=== PATIENT | male | born 1980 | race Caucasian/White ===

== ENCOUNTER 2025-04-25 08:42 | Outpatient (CLI) | payer OTHER, SELFPAY ==
--- NOTE | ~2025-04-25 | US_ITS ---
US abdomen limited INDICATION: 5 cm mass of the liver, inconclusive on MRI. PROCEDURE: Realtime right upper abdominal ultrasound. COMPARISON: No prior studies for comparison. FINDINGS: The pancreas is normal without focal mass or pancreatic ductal dilation. There is a cyst o f the liver measuring 5.1 x 3.9 x 4.3 cm. There is normal directional flow in the portal vein. The gallbladder is normal without stones, gallbladder wall thickening or pericholecystic fluid. Comm on bile duct measures 3.5 mm. No sonographic Jacques's sign. There are echogenic foci in the right ki dney. Cannot exclude nonobstructing stones. No hydronephrosis. Right kidney measures 11.6 cm. IMPRESSION: 1: Liver cyst measuring 5.1 cm maximum dimension. 2: Possible nonobstructing right nephrolithiasis. Reviewed, dictated and finalized at location A.
--- OUTSIDE RECORDS SUMMARY | 2025-04-25 08:53 | XMS_ITS | Encounter Summary ---
Author Organization [facility] Address [address] [place] [address] Care Team Providers Care Furniture Maker Name Role Phone PrudencioMaryam gonsales BRUCE-GARBAGE COLLECTOR SUPERVISOR Primary Care Provider + Flower Vaz Primary Care Provider [phone] Encounter Details Date Type Department Care Team (Late st Contact Info) Description 07/30/2023 Lab Requisition [facility] [address] [facility], [place] [id number] Social History Tobacco Use Types Packs/Day Years Used Date Smoking Tobacco: Every Day Cigarettes 2 20 Started: 02/08/1995; Last attempted to quit: 02/08/2014 Smokeless Tobacco: Never Comments:current 5-6 cigaret t/day Alcohol Use Standard Drinks/Week Comments Not Currently 0 (1 standard drink = 0.6 oz pur e alcohol) PHQ-2 Answer Date Recorded PHQ2 TOTAL SCORE 1 05/28/2023 PRAPARE - Transportation Answer Date Re corded Lack of Transportation (Medical) No 02/09/2020 Lack of Transportation (Non-Medical) No 02/09/2020 Sex and Gender Information Value Date Recorded Sex Assigned at Male 09/19/2021 11:57 AM CDT Legal Sex Male 9:40 PM CAR REPOSSESSOR Gender Identity Male 09/19/2021 11:57 AM CDT Sexual Orientation Straight 09/19/2021 11 :57 AM CDT documented as of this encounter Plan of Treatment Not on file documented as of this encounter Visit Diagnoses Not on filedocumented in this encounter Care Teams Furniture Maker Relationship Specialty Start Date End Date Maryam Villanueva APRN-SELVIN [address] [facility] [address] [place] [address] PCP - General 09/04/22 12/28/24 Flower Vaz PA [address] [facility] [address] [place] [address] PCP - General Physician Agricultural Systems Specialist 12/29/24 documented as of this encounter
--- OUTSIDE RECORDS SUMMARY | 2025-04-25 08:54 | XMS_ITS | Data Portability ---
Author Organization [facility] [employer], Main Office Address [address] [place] [address] Assessment No assessment recorded. Plan of Treatment Reminders Order Date Submit Date Provider Last Modified By Organization Details Last Modified Time Details Appointments None recorded. Lab urinalysis , dipstick 2024 025 [place] 4 [facility], [address], [place], [address], 12:24:14 Referral None recorded. Procedures None recorded. Surgeries None recorded. Imaging None recorded. Medication Orders tamsulosin 0.4 mg capsule 2024 025 [facility], [address] [place], [id number], 5 10:44:29 oxybutynin chloride ER 5 mg tablet,ext ended release 24 hr 2024 025 [facility], [address] [place], [id number], 5 10:44:27 Patient TargetsNo targets recorded. Patient InstructionsNo instructions recorded. Reason for Referral None Reported. Results Created Date Observation Date Name Description Value Unit Range Abnormal Flag Note LastModifiedBy Organization Detail LastModifiedTime 01/05/20 25 01/05/2025 urina lysis , dipst ick Leukocytes (reference range: negative kami/ l) Negati ve Not Available [facility] [address], [place], [address], 01/05/2025 11:13:36 01/05/20 25 01/05/2025 urina lysis , dipst ick Nitrite (reference rage: negative mg/dl) negati ve Not Available [facility] [place] [address] [facility], [place], [address], 01/05/2025 11:13:36 01/05/20 25 01/05/2025 urina lysis , dipst ick Urobilinogen (reference range: 0.2-1 mg/dl) 0.2 Not Available [facility] [address] [place], [place] [address] [facility], [place], [address], 01/05/2025 11:13:36 01/05/20 25 01/05/2025 urina lysis , dipst ick pH (reference range: 5-7) 8.5 Not Available [facility] [address] [place], [place] [address] [facility], [place], [address], 01/05/2025 11:13:36 01/05/20 25 01/05/2025 urina lysis , dipst ick Blood (reference range: negative Kalen/ l) Negati ve Not Available [facility] [address] [place], [place] [address] [facility], [place], [address], 01/05/2025 11:13:36 01/05/20 25 01/05/2025 urina lysis , dipst ick Specific [place] (reference range: 1.005-1.030) 1.020 Not Available [facility] [address] [place], [place] [address] [facility], [place], [address], 01/05/2025 11:13:36 01/05/20 25 01/05/2025 urina lysis , dipst ick Ketone (reference range: negative mg/dl) Negati ve Not Available [facility] [place] [address] [place], [place] [address], [place], [address], 01/05/2025 11:13:36 01/05/20 25 01/05/2025 urina lysis , dipst ick Bilirubin (reference range: negative mg/dl) Negati ve Not Available [facility] [address], [place], [address], 01/05/2025 11:13:36 01/05/20 25 01/05/2025 urina lysis , dipst ick Glucose (reference range: negative mg/dl) Negati ve Not Available [facility] [place] [address], [place], [address], 01/05/2025 11:13:36 01/05/20 25 01/05/2025 urina lysis , dipst ick Appearance Clear Not Available [facility] [place] [address], [place], [address], 01/05/2025 11:13:36 01/05/20 25 01/05/2025 urina lysis , dipst ick Color Yellow Not Available [facility] [place] [address], [place], [address], 01/05/2025 11:13:36 Result Notes None recorded. Problems Name Problem SNOMED Code Status Onset Date Resolution Date Notes Provider Name and Address Organization Details Recorded Time Urinary incontinence 218315368 Active 2024 Melinda thompson, [employer] [facility] [employer] [facility] [employer] 5 11:13:31 Overactive urinary bladder 262035824 Active 2024 Jj Talavera MD [address], [place], [address] , [facility] [employer] [facility] [employer] 11:40:06 Benign prostatic hyperplasia with outflow obstruction 000444153 Active 2024 Jj Talavera MD [address] [facility] [address], [place], [address], [facility] [employer] [facility] 5 11:40:09 Prostatitis 4350287 Active 2024 Jj Talavera MD [address], [place], [address], [facility] [employer] [facility] 5 10:47:57 Problem Notes None recorded. Medical Equipment None Reported. Allergies Allergen ID Allergen Name Allergen Category Reaction Reaction Severity Criticality Documentation Date Start Date Code Code System Note Provider Name and Address Organization Details Recorded Time 88817 penicilla mine medicatio n Not available Not available Not available 01/05/2025 7975 RxNorm Melinda Thais thompson [facility] [employer] [facility] 5 11:27:28 52632 Cipro medicatio n Not available Not available Not available 01/05/2025 01201 3 RxNorm Melinda Thais thompson, [facility] [employer] [facility] 5 11:27:34 Medications Name Sig Start Date Stop Date Status Note LastModified by Organization Details LastModified Time buspirone 5 mg tablet active Not Available Not Available No t Available doxycycline hyclate 100 mg capsule active Not Available Not Available N ot Available atorvastatin 20 mg tablet Take 1 tablet every day by oral route at bedtime. active Not Available Not Available No t Available ropinirole 1 mg tablet Take 1 tablet twice a day by oral route. active Not Available Not Available No t Available sucralfate 1 gram tablet active Not Available Not Available Not Available famotidine 40 mg tablet active Not Available Not Available Not Available isosorbide mononitrate ER 30 mg tablet,exten ded release 24 hr active Not Available Not Available Not Available clonazepam 0.5 mg tablet Take 1 tablet twice a day by oral route. active Not Available Not Available No t Available sertraline 100 mg tablet Take 1 tablet every day by oral route in the morning. active Not Available Not Available No t Available ciprofloxaci n 500 mg tablet active Not Available Not Available Not Available sulfamethoxa zole 800 mg-trimethop rim 160 mg tablet Take 1 tablet every 12 hours by oral route for 10 days. active Not Available Not Available No t Available risperidone 3 mg tablet Take 1 tablet twice a day by oral route. active Not Available Not Available No t Available lithium carbonate ER 450 mg tablet,exten ded release active Not Available Not Available Not Available levothyroxin e 100 mcg tablet Take 1 tablet every day by oral route in the morning. active Not Available Not Available No t Available propranolol 10 mg tablet Take 2 tablets twice a day by oral route. active Not Available Not Available No t Available tamsulosin 0.4 mg capsule Take 1 capsule every day by oral route for 90 days. active Not Available Not Available No t Available pantoprazole 40 mg tablet,delay ed release active Not Available Not Available N ot Available lansoprazole 30 mg capsule,shane yed release active Not Available Not Available Not Available docusate sodium 100 mg capsule active Not Available Not Available N ot Available oxybutynin chloride ER 5 mg tablet,exten ded release 24 hr Take 1 tablet every day by oral route for 90 days. active Not Available Not Available No t Available bisacodyl 5 mg tablet,delay ed release active Not Available Not Available N ot Available methylpredni solone 4 mg tablets in a dose pack active Not Available Not Available No t Available albuterol sulfate HFA 90 mcg/actuatio n aerosol inhaler active Not Available Not Available Not Available fluticasone propionate 50 mcg/actuatio n nasal spray,suspen radha active Not Available Not Available Not Available lisinopril 2.5 mg tablet Take 1 tablet every day by oral route in the morning. active Not Available Not Available No t Available eszopiclone 2 mg tablet active Not Available Not Available Not Available Lunesta 1 mg tablet Take 2 tablets every day by oral route at bedtime. active Not Available Not Available No t Available lithium aspartate active Not Available Not Available No t Available Gavilax 17 gram/dose oral powder active Not Available Not Available Not Available Dulera 200 mcg-5 mcg/actuatio n HFA aerosol inhaler Inhale 2 puffs twice a day by inhalation route. active Not Available Not Available No t Available Linzess 72 mcg capsule active Not Available Not Available Not Available albuterol 90 mcg-budesoni de 80 mcg/actuatio n HFA aerosol inhaler Inhale by inhalation route. active Not Available Not Available No t Available Vitals Date Recorded Body temperature Oxygen saturation Oxygen saturation in Arterial blood by Pulse oximetry Heart rate Body height Body mass index (BMI) Body weight Systolic blood pressure Diastolic blood pressure Provider Name and Address Organization Details Last Updated DateTime 99.5 [degF] 98 % 98 % 77 /min 170.18 cm 21.6 kg/m2 78157.7 5 g 127 mm[Hg] 87 mm[Hg] Melinda Plascencia [facility] [employer] [facility] 11:28:05 Social History Question Answer Notes LastModified by Organizat ion Details LastModified Time Tobacco Smoking Status Never Smoker Melinda Plascencia null, [facility] 01/05/2025 11:28:25 What Was The Date Of Your Most Recent Tobacco Screening? 01/05/2025 [email or web address] Information not available 01/05/2025 Sex: Unknown Functional Status Question Answer Note LastModified by Organization D etails LastModified Time What is your level of alcohol consumption? None Information not available 01/05/2025 Mental Status None recorded. Family History Nothing Reported. Medical History Condition Response DIABETES, TYPE Y ASTHMA Y HEPATITIS / LIVER DISEASE N HEART DISEASE/HEART PROBLEMS N HYPERTENSION Y Past Encounters Encounter ID Performer Location Encounter Start Date Encounter Closed Date Diagnosis/Indication Diagnosis SNOMED-CT Code Diagnosis ICD10 Code Diagnosis Note [id number] Jj Talavera MD [facility] [address] [address] 01/05/2025 11:01:03 01/05/2025 11:48:53 Urinary incontinence 268366106 R32 Benign pro static hyperplasia with outflow obstruction 923520111 N40.1 Overactive urinary bladder 984510277 N32.81 Health Concerns Section Related Observation LastModified by Organization Detai ls LastModified Time None Recorded Concern Status LastModified by Organization Details LastModified Time None Recorded Advance Directives Directive None Recorded Payers Encounter Date Sequence Insurance Name Policy Number Policy Le Covered Member ID Le Member ID Guarantor Name 01/05/2025 1 [facility] (MEDICARE - MEDICAID REPLACEMENT HMO) [id number] Jordi Elizalde [id number] Jordi Elizalde Notes Date Note Type Note Provider Name and Address Organization Details Recorded Time 01/05/2025 text/html this patient has tremors but he says he does not have Parkinson's. He says it is nerves. He comes in saying for the past 3 months or so he has been having frequency and urgency and having to void every 2-3 hours. He has to get up 3 times per night. He also thinks his times he has difficulty having a forceful stream He does drink some dietary irritants but he mainly drinks water There are no specific aggravating or relieving factors Jj Talavera MD [address] [place] [address], [place], [address], [place] [facility] 01/05/2025 11:42:06
--- OUTSIDE RECORDS SUMMARY | 2025-04-25 08:54 | XMS_ITS | Clinical Summary ---
Author Organization [facility] Address [address] [place] [address] Care Team Providers Care Motorcycle Maker Name Role Phone Unavailable Primary Care Provider Unavailabl e Social History Tobacco Use Types Packs/Day Years Used Date Smoking Tobacco: Never Assessed Sex and Gender Information Value Date Recorded Sex Assigned at Not on file Legal Sex Male 9:09 PM PDT Gender Identity Not on file Sexual Orientation Not on file Plan of Treatment Not on file
--- OUTSIDE RECORDS SUMMARY | 2025-04-25 08:54 | XMS_ITS | Encounter Summary ---
Author Organization [facility] Address [address] [place] [address] Care Team Providers Care Sealant Mixer Name Role Phone Unavailable Primary Care Provider Unavailabl e Prior Encounters Date Type Department Care Team Description 12/13/2019 Converted 13x Documents [facility] [address] [place] [address] <No scans attached> 12/13/2019 Converted CPS Chart Documents [facility] [address] [place] [address] <No scans attached> Plan of Treatment Not on file Procedures Procedure Name Priority Date/Time Associated Diagnosis Comments 30 CEREC ZIRC CROWNPOST Routine 03/17/20 2:00 AM CDT 19 LIMITED ORAL EVALUATION - PROBLEM FOCUSED Routine 03/17/2020 2:00 AM CDT PANORAMIC RADIOGRAPHIC IMAGE Routine 03/17/2020 2:00 AM CDT ADDITIONAL X-RAY Routine 03/17/2020 2:00 AM CDT ADDITIONAL X-RAY Routine 03/17/2020 2:00 AM CDT ADDITIONAL X-RAY Routine 03/17/2020 2:00 AM CDT ADDITIONAL X-RAY Routine 03/17/2020 2:00 AM CDT ADDITIONAL X-RAY Routine 03/17/2020 2:00 AM CDT ADDITIONAL X-RAY Routine 03/17/2020 2:00 AM CDT SINGLE X-RAY Routine 03/17/2020 2:00 AM CDT Visit Diagnoses Not on file
--- OUTSIDE RECORDS SUMMARY | 2025-04-25 08:54 | XMS_ITS ---
Author Organization [facility] Address [address] [place] [address] Care Team Providers Care General Hardware Salesperson Name Role Phone Flower Vaz Primary Care Provider [phone] Active Problems * This document contains information received from the source organization and may not represent a complete record from that organization. Problem Noted Date Diagnosed Date Schizoaffective disorder, bipolar type 2 Essential hypertension 01/31/2021 Tobacco abuse 09/28/2020 Type 2 diabetes mellitus wit hout complication, without long-term current use of insulin 06/25/2020 Chronic maxillary sinusitis 06/25/2020 Acquired hypothyroidism 06/25/2020 Recurrent major depressive disorder, in partial remission 06/25/2020 Malignant neoplasm of sigmoid colon 06/25/2020 Callus of foot 06/25/2020 Family history of hypertrophic cardiomyopathy BMI 32.0-32.9,adult 06/25/2020 Healthcare maintenance 06/25/2020 Mixed hyperlipidemia 02/09/2020 Obstructive sleep apnea on CPAP 08/15/2017 Irritable bowel syndrome with constipation 07/29 Acid reflux disease 02/10/2015 Overview (05/02/2021): Last Assessment & Plan: Reasonably controlled at this time on 150 mg of ranitidine in the evening. Continue to monitor closely given patient's weight gain for possible return of symptoms. COPD, mild 01/24/2015 Generalized anxiety disorder 11/24/2000 Current Treatment and Therapy Plans No current plan information found. Past Treatment and Therapy Plans No past plan information found. Lifetime Dose Tracking * Chemical Lifetime Dose Automatic Entry Manual Entr y Dose Length Product 877 mGy-cm 877 mGy-cm 0 mGy-cm Resolved Problems Problem Noted Date Diagnosed Date Resolved Date Bipolar 1 disorder 07/26/2016 Overview (01/31/2021): Overview: Transitioned From: Bipolar affective disorder; Annotation - 17May2017: Dr. Shanae Castro; [address]; [place] [address]; Last Assessment & Plan: Care as directed by psychiatry-Dr. Castro. Appears well controlled at this time. Generalized anxiety disorder 01/24/2015 01/31/2021 Overview (01/31/2021): Overview: Annotation - 17May2017: Dr. Shanae Castro; [address]; [place] [address]; Transitioned From: Anxiety; Annotation - 17May2017: Dr. Shanae Castro; [address]; [place] [address]; Last Assessment & Plan: Care as directed by psychiatry-Dr. Castro. Appears well controlled at this time. Asthma 01/24/2015 06/14/2021 Overview (05/02/2021): Last Assessment & Plan: Stable at present, no recent flares, continues on his routine medications. No change current therapy.
--- OUTSIDE RECORDS SUMMARY | 2025-04-25 08:54 | XMS_ITS | Clinical Summary ---
Author Organization [facility] Address [address] [place] [address] Phone Care Team Providers Care Shelving Supervisor Name Role Phone Unavailable Primary Care Provider Unavailabl e Social History Tobacco Use Types Packs/Day Years Used Date Smoking Tobacco: Never Assessed Sex and Gender Information Value Date Recorded Sex Assigned at Not on file Legal Sex Male 3:10 PM CDT Gender Identity Not on file Sexual Orientation Not on file Plan of Treatment Health Maintenance Due Date Last Done Comments DTAP/TDAP/TD VACCINES (1 - Tdap) 1998 HEPATITIS B VACCINES (1 of 3 - 19+ 3-dose series) 1998 INFLUENZA VACCINE (#1) 2024 COLORECTAL SCREENING 2024 Colorectal Cancer Screening 2024 FIT-DNA Q 3 years 2024 FIT/FOBT Q 1 year 2024 Flex Sig/CT Colonography Q 5 years 2024 HPV VACCINES Aged Out No longer eligi ble based on patient's age to complete this topic
--- OUTSIDE RECORDS SUMMARY | 2025-04-25 08:54 | XMS_ITS | CONTINUITY OF CARE DOCUMENT ---
Author Name luana craft Address Unknown Organization [facility] Address [address] [place] [address] Phone [phone] Care Team Providers Care Softball Winder Name Role Phone Clara STALLWORTH, Raul Unavailable [phone] Clara STALLWORTH, Raul Unavailable FERNANDO VALLE MD Unavailable PROBLEMS Condition Status Date Provider Notes Other symptoms involving car diovascular system active Raul Elizabeth MD Anxiety disorder generalized active Raul Elizabeth MD Asthma active Raul Elizabeth MD Bradycardia - sinus active Raul Wilkerson Cardiac murmur active Raul Elizabeth MD DM - type 2 active Raul Elizabeth MD HTN essential active Raul Elizabeth MD Hypercholesterolemia active Raul Elizabeth MD Hypothyroidism active Raul Elizabeth MD Tobacco abuse active Raul Elizabeth MD ENCOUNTERS Date Type Provider Location Encounter Diag nosis 06/02 - 06/02 In-person encounter Office Visit Raul Elizabeth MD [facility] Other symptoms involving cardiovascular systemAnxiety disorder generalizedAsthmaBradycardia - sinusCardiac murmurDM - type 2HTN essentialHypercholesterolemiaHypothyroidismTobacco abuse VITAL SIGNS Date Observation Value Provider Body Mass Index (Ratio) 24.40 kg/m2 Ricardo Elizabeth MD blood pressure, resting Yes Tracey Taylor blood pressure, diastolic 76 mm[Hg] Genna Taylor blood pressure, systolic 121 mm[Hg] Verona Taylor oxygen saturation, oximetry 96 % Chasidy Taylor respiratory rate E&M 18 /min Xiang Taylor pulse rate 53 /min Chasidy chris weight E&M 155.8 [lb_av] Chasidy cordova height E&M 67 [in_i] Chasidy chris ALLERGIES Allergy Name Onset Date Reaction Criticality Status LAMICTAL High Criticality active ERYTHROMYCIN High Criticality active PENICILLIN High Criticality active RESULTS Date Observation Value Provider Reference Range Interpretation Location thyroid stimulating hormone, serum 1.220 ??IU/ML [facility] 0.270 - 4.200 pro brain natriuretic peptide 134.0 pg/mL [facility] 0.0 - 125.0 High very low density lipoproteins 27.6 mg/dL [facility] 5.0 - 40.0 LDL/HDL (low-density lipoprotein/high- density lipoprotein) ratio 1.7 RATIO [facility] - lipoprotein, beta, serum, point, quantitative, calculated 93.4 (?) [facility] 0.0 - 100.0 HDL cholesterol, serum 55.0 mg/dL [facility] 35.0 - 55.0 cholesterol, serum 176.0 mg/dL [facility] 0.0 - 200.0 triglyceride, serum, fasting 138.0 mg/dL [facility] 0.0 - 150.0 urea nitrogen/creatini ne ratio, serum 4.4 [facility] - Estimated Glomerular Filtration Rate (calc) 100.9 (?) [facility] 59.0 - chloride, serum 102.9 mmol/L [facility] 98.0 - 107.0 potassium, serum 4.2 mmol/L [facility] 3.5 - 5.1 sodium, serum 143.0 mmol/L [facility] 136.0 - 145.0 creatinine, serum 0.9 mg/dL [facility] 0.7 - 1.2 carbon dioxide, venous blood 25.0 mmol/L [facility] 22.0 - 29.0 calcium, serum 10.0 mg/dL [facility] 8.6 - 10.2 urea nitrogen, blood 4.0 mg/dL [facility] 6.0 - 20.0 Low blood glucose, random 102.0 mg/dL [facility] 74.0 - 99.0 High hemoglobin A1C, blood, as % of total hemoglobin 5.3 % [facility] 4.0 - 5.6 HISTORY OF MEDICATION USE Medication Status Instructions Dates Provider Indications Com ments STOOL SOFTENER CAPSULE active as needed 0 Chasidy Taylor LINZESS 145 MCG ORAL CAPSULE active once daily as needed Chasidy Taylor GAS-X EXTRA STRENGTH CAPSULE active as needed Chasidy Taylor LAXATIVES active as needed Chasidy Taylor IMODIUM A-D TABLET active as needed Barbie Taylor MULTIVITAMINS ORAL CAPSULE active ONE TAB. DAILY Chasidy Taylor ACIDOPHILUS PROBIOTIC 10 MG ORAL TABLET active as directed Chasidy Taylor FISH OIL 1200 MG ORAL CAPSULE active ONE DAILY Chasidy Taylor KLONOPIN 1 MG ORAL TABLET active 1 tab in AM, 1/2 tab at bedtime Chasidy Taylor LEVOTHYROXINE SODIUM 100 MCG ORAL TABLET active 1 1/2 tabs in AM Chasidy Taylor ZOLOFT 50 MG ORAL TABLET active 1 1/2 tab in AM Chasidy Taylor LITHIUM CARBONATE 300 MG ORAL TABLET active 1 cap in AM, 2 caps at bedtime Chasidy Taylor AEROSPAN 80 MCG/ACT INHALATION AEROSOL SOLUTION active 2 puffs twice daily Chasidy Taylor VENTOLIN HFA 108 (90 Base) MCG/ACT INHALATION AEROSOL SOLUTION active 2 puffs 4 times daily as needed Chasidy Taylor RANITIDINE HCL 150 MG ORAL TABLET active ONE TAB TWICE DAILY Chasidy Taylor RISPERDAL 3 MG ORAL TABLET active once daily Chasidy Taylor REQUIP 1 MG ORAL TABLET active once daily Chasidy Taylor REMERON 15 MG ORAL TABLET active once daily Chasidy Taylor SOCIAL HISTORY Date Observation Value Provider smoking/tobacco cess ation, patient education and counseling yes Raul Elizabeth MD social history reviewed E&M revruma ewed - no changes required Raul Elizabeth MD number of years as a smoker 22 a Chasidy Taylor cigarette use yes Chasidy cordova smoking status Current every day smoker Jayne Taylor FAMILY HISTORY Family Member Condition Father Family History of Co ronary Artery Disease: Father Family History of Co ronary Artery Disease: INSURANCE PROVIDERS Payer name Policy type / Coverage type [place] red republic[employer] MEDICAID (2) Medicaid [id number] ADVANCE DIRECTIVES Name Date DISCUSSED - NO DECISION MADE TREATMENT PLAN Date Name Performer Cardiology aRul Wilkerson Cardiology: H is updated medication list for this problem includes: Levothyroxine Sodium 100 Mcg Tabs (Levothyroxine sodium) ..... 1 1/2 tabs in am Raul Elizabeth MD Cardiology Raul Wilkerson Cardiology: B P today: 121/76 Raul Elizabeth MD Cardiology Raul Wilkerson Cardiology Raul Wilkerson Cardiology Raul Wilkerson Cardiology: H is updated medication list for this problem includes: Aerospan 80 Mcg/act Inh Aers (Flunisolide hfa) ..... 2 puffs twice daily Ventolin Hfa 108 (90 Base) Mcg/act Inh Aers (Albuterol sulfate) ..... 2 puffs 4 times daily as needed Raul Elizabeth MD Cardiology Raul Wilkerson Date Name TSH, 3RD GENERATION W/REFLEX TO FT4 HEMOGLOBIN A1c PROBNP, N TERMINAL LIPID PANEL BASIC METABOLIC PANE L W/EGFR Complete Echo HISTORY OF PROCEDURES Procedure Date Procedure Name Provider Procedure Notes S tatus EKG Raul Elizabeth MD complet ed SNOMED-CT: [id number] Current Medications Documented Raul Elizabeth MD completed
--- OUTSIDE RECORDS SUMMARY | 2025-04-25 08:54 | XMS_ITS | Encounter Summary ---
Author Organization [facility] Address [address] [place] [address] Care Team Providers Care Senior Partner Name Role Phone Maryam Villanueva BRUCE-CARE PROGRAM DIRECTOR Primary Care Provider + Flower Vaz Primary Care Provider [phone] Encounter Details Date Type Department Care Team (Late st Contact Info) Description 07/30/2023 Lab Requisition [facility] - [facility] Lab [address] [place] [address] Higinio Salcedo MD [address] [address] Social History Tobacco Use Types Packs/Day Years [...] AM CDT 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 Gender Identity Male 09/19/2021 11:57 AM CDT Sexual Orientation Straight 09/19/2021 11 :57 AM CDT documented as of this encounter Plan of Treatment Not on file documented as of this encounter Procedures Procedure Name Priority Date/Time Associated Diagnosis Comments DERMATOPATHOLOGY Routine 07/29/2023 12:0 0 AM CDT documented in this encounter Results * DERMATOPATHOLOGY (07/29/2023 12:00 AM CDT) Case Report Dermatopathology Report Case: [id number] Authorizing Provider: Higinio Salcedo MD Collected: 07/29/2023 12:00 AM Ordering Location: [facility] Received: 07/30/2023 05:01 PM Pathologist: Maribel Sheldon MD Specimen: Skin, right wrist 11:37 AM CDT DERMATOPATHOLOGY LABORATORY Final Diagnosis Specimen A. 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 The specimen consists of a shave biopsy measuring 6x4x1 mm. Jar 0. 11:37 AM CDT DERMATOPATHOLOGY LABORATORY Microscopic Description Specimen A. SKIN, right wrist: This is a compound nevus. There is a lentiginous proliferation of melanocytes between nevus nests of cells along the dermal-epidermal junction. There is underlying lamellar fibroplasia of the papillary dermis. The intradermal component is bland in appearance and matures with depth. (Compound Lon's Nevus) Some melanocytes are splayed between collagen bundles and are localized around adnexal structures, consistent with congenital features. 11:37 AM CDT DERMATOPATHOLOGY LABORATORY Disclaimer An external and internal positive and negative controls are appropriate for the histochemical, immunohistochemical and immunofluorescence stain(s) in this case (if any), except where stated explicitly. The performance characteristics of the stain(s) cited in this report were developed and its performance characteristic determined by the Dermatopathology Laboratory at [facility], directed by Dr. Houston Membreno. These tests need not be, and therefore are not, approved by the [place] Food and Drug Administration. The tests are used for clinical purposes. Billing Codes Specimen Charges Stain Charges 18217 1 3 11:37 AM CDT DERMATOPATHOLOGY LABORATORY Embedded Images 3 11:37 AM CDT DERMATOPATHOLOGY LABORATORY Pathology/Cytolog y TISSUE SPECIMEN FROM SKIN / Unknown 07/29/2023 07/30/2023 5:01 PM CDT Higinio Salcedo MD LAB - PATHOLOGY/CYTOLOGY ORD ERABLES Final Result DERMATOPATHOLOGY LABORATORY [facility] - Department of Dermatology [address] [phone] documented in this encounter Visit Diagnoses Not on filedocumented in this encounter Care Teams Senior Partner Relationship Specialty Start Date End Date Maryam Villanueva APRN-CARE PROGRAM DIRECTOR [address] [facility] [address] [place] [id number] PCP - General 09/04/22 12/28/24 Flower Vaz PA [address] [facility] [address] [place] [address] PCP - General Physician Finger Buffs Assembler 12/29/24 documented as of this encounter
--- OUTSIDE RECORDS SUMMARY | 2025-04-25 08:54 | XMS_ITS | Clinical Summary ---
Author Organization [facility] Address [address] [facility] [place] [address] Care Team Providers Care Drawer In Plain Loom Name Role Phone Flower Vaz Primary Care Provider [phone] Source Comments [facility],non-owned Affiliates and Associated Physician Practices is amultiple site organization consisting of ambulatory clinics and hospital sitesin [place], [place], [place] and [place]. This disclosure is being madepursuant to the Care Everywhere program and may not contain all information available regarding this patient. Last updated 18.[facility] Allergies Active Allergy Reactions Criticality Noted Date Comments Erythromycin Unknown 11/11/2016 Gives high liver enzymes Lamotrigine Rash Medium 02/25/2018 Metformin Nausea and/or Vomiting 02/09/2020 Penicillins Anaphylaxis,Itching,Rash High 05/14/2016 Medications * This document contains information received from the source organization and may not represent a complete record from that organization. * Be aware that medications may not be up to date on this document. Alwaysverify current medications with the patient. beclomethasone dipropionate (Qvar) 80 MCG/ACT inhaler Inhale 2 (two) puffs by mouth 2 times daily Active rOPINIRole (REQUIP) 1 MG tablet Take 2 (two) tablets by mouth at bedtime Active albuterol HFA (Proventil; Ventolin; Proair) 108 (90 Base) MCG/ACT inhaler Inhale 2 (two) puffs by mouth 4 times daily Active CPAP Inhale 1 device by mouth at bedtime Active MOTEGRITY 2 MG TABS Take 1 (one) tablet by mouth once daily Active dicyclomine (BENTYL) 10 MG capsule Take 1 (one) capsule by mouth as needed Active promethazine (PHENERGAN) 25 MG tablet Take 12.5 mg by mouth as needed Active AMITIZA 24 MCG capsule TAKE 1 CAPSULE BY MOUTH TWICE DAILY WITH FOOD AND WATER Active PROCTO-MED HC 2.5 % cream APPLY A THIN LAYER TO AFFECTED AREA TWICE DAILY Active Dextromethorphan- guaiFENesin (ROBITUSSIN DM PO) Take 30 mL by mouth as needed Active acetaminophen (TYLENOL) 500 MG capsule Take 1,000 mg by mouth every 4 hours as needed for Fever or Pain Active Blood Pressure Monitoring (BLOOD PRESSURE KIT) DEVIIndications:E ssential hypertension Use 1 device 2 times daily 1 device 1 Active fluticasone propionate (FLONASE) 50 MCG/ACT nasal sprayIndications: Chronic maxillary sinusitis [place] 2 sprays into each nostril once daily 16 g Active Additional Information Patient not taking.Informant: Patient, Reported on 01/31/2022 cetirizine (ZYRTEC) 10 MG tabletIndications :Chronic maxillary sinusitis Take 1 tablet by mouth once daily 90 tablet 4 Active famotidine (PEPCID) 20 MG tablet Take 20 mg by mouth as needed Active QVAR REDIHALER 80 MCG/ACT inhaler Inhale 1 (one) puff by mouth every 12 hours Active pantoprazole EC (PROTONIX) 40 MG tablet TAKE 1 TABLET BY MOUTH TWICE DAILY 60 tablet 4 Active amLODIPine (NORVASC) 10 MG tabletIndications :Essential hypertension Take 1 (one) tablet by mouth once daily 90 tablet 4 Active glipiZIDE (GLUCOTROL) 5 MG tabletIndications :Type 2 diabetes mellitus without complication, without long-term current use of insulin (HCC) TAKE 1 TABLET BY MOUTH TWICE DAILY 180 tablet 1 Active Additional Information Patient not taking.Reported on 11/04/2022 isosorbide mononitrate CR 24hr (IMDUR) 30 MG tabletIndications :Essential hypertension TAKE 1 TABLET BY MOUTH EVERY DAY 90 tablet 022 Active levothyroxine (SYNTHROID) 100 MCG tabletIndications :Acquired hypothyroidism TAKE 1 TABLET BY MOUTH EVERY DAY 90 tablet 022 Active atorvastatin (LIPITOR) 20 MG tablet TAKE 1 TABLET BY MOUTH DAILY 90 tablet 2 022 Active lithium CR (Eskalith CR) 450 MG tablet TAKE 1&1/2 TABLETS BY MOUTH ONCE DAILY FOR MANIC DEPRESSION 135 tablet 1 025 Active propranolol (Inderal) 10 MG tablet Take 1 (one) tablet by mouth 2 times daily 180 tablet 025 Active sertraline (Zoloft) 100 MG tabletIndications :Major Depressive Disorder Take 1 (one) tablet by mouth once daily Reasons: Major Depressive Disorder 90 tablet 025 Active risperiDONE (RisperDAL) 3 MG tabletIndications :Manic Phase of Bipolar Mood Disorder Take 1 (one) tablet by mouth at bedtime Reasons: Manic Phase of Manic-Depressi on 180 tablet 025 Active risperiDONE (RisperDAL) 1 MG tabletIndications :Manic Phase of Bipolar Mood Disorder Take 2 (two) tablets by mouth every morning Reasons: Manic Phase of Manic-Depressi on 180 tablet 025 Active eszopiclone (Lunesta) 3 MG tabletIndications :Insomnia Take 1 (one) tablet by mouth at bedtime for 90 days Reasons: Trouble Sleeping 90 tablet 025 2024 Active busPIRone (Buspar) 10 MG tabletIndications :Anxiety Disorder Take 1 (one) tablet by mouth 3 times daily Reasons: Anxiety Disorder 90 tablet 2 025 Active clonazePAM (KlonoPIN) 0.5 MG tabletIndications :Anxiety Take 1 (one) tablet by mouth 2 times daily as needed anxiety Reasons: Feeling Anxious 60 tablet 025 2024 Active busPIRone (Buspar) 5 MG tabletIndications :Anxiety Disorder Take 1 (one) tablet by mouth 2 times daily Reasons: Anxiety Disorder 60 tablet 1 025 2024 Discontinued clonazePAM (KlonoPIN) 0.5 MG tabletIndications :Anxiety Take 1 (one) tablet by mouth 2 times daily as needed anxiety Reasons: Feeling Anxious 60 tablet 025 2024 Discontinued(R eorder) Active Problems Problem Noted Date Diagnosed Date Schizoaffective disorder, [...] COPD, mild 01/24/2015 Generalized anxiety disorder 11/24/2000 Resolved Problems Problem Noted Date Diagnosed Date Resolved Date Bipolar 1 disorder 07/26/2016 Overview (01/31/2021): Overview: Transitioned From: Bipolar affective disorder; Annotation - 17May2017: Dr. Shanae Castro; [address]; [place] [address]; Last Assessment & Plan: Care as directed by psychiatry-Dr. Castro. Appears well controlled at this time. Generalized anxiety disorder 01/24/2015 01/31/2021 Overview (01/31/2021): Overview: Annotation - 17May2017: Dr. Shanae Castro; [address]; [place] [address]; Transitioned From: Anxiety; Annotation - 17May2017: Dr. Shanae Castro; [address]; [place] [address]; Last Assessment & Plan: Care as directed by psychiatry-Dr. Castro. Appears well controlled at this time. Asthma 01/24/2015 06/14/2021 Overview (05/02/2021): Last Assessment & Plan: Stable at present, no recent flares, continues on his routine medications. No change current therapy. Encounters * This document contains information received from the source organization and may not represent a complete record from that organization. Date Type Department Care Team Description 03/24/2025 Travel 02/24/2025 Travel from Last 3 Months Immunizations Immunization Administration Dates Next Due [facility] primary monoval ent 12+ yr 0.3mL Purple cap 01/08/2022,02/21/2021,01/31/2021 INFLUENZA VACCINE 01/16/2022,11/05/2019 PNEUMOCOCCAL PPSV23 09/04/2020 TDAP (7yrs+) 09/04/2020 iNFLUENZA VACCINE, RECOM-SINGH, QUADR. (FLUBLOCK QUADRIVALENT; 18Y+) (RIV4) 09/04/2020 Family History Medical History Relation Name Comments Cardiomyopathy Father IHCM Diabetes - Type 2 Maternal Grandmother Hypertension Mother Cardiomyopathy Paternal Grandfather IHCM Relation Name Status Comments Father Maternal Grandmother Mother Paternal Grandfather Social History Tobacco Use Types Packs/Day Years Used Date Smoking Tobacco: Every Day Cigarettes 2 20 Started: 02/08/1995; Last attempted to quit: 02/08/2014 Smokeless Tobacco: Never Tobacco Cessation:Ready to Q uit: Not Asked; Counseling Given: Not Answered Comments:current 5-6 cigarett/day Alcohol Use Standard Drinks/Week Comments Not Currently 0 (1 standard drink = 0.6 oz pur e alcohol) PHQ-2 Answer Date Recorded Patient Health Questionnaire-2 Score 1 03/24/2025 PRAPARE - Transportation Answer Date Re corded Lack of Transportation (Medical) No 02/09/2020 Lack of Transportation (Non-Medical) No 02/09/2020 Sex and Gender Information Value Date Recorded Sex Assigned at Male 09/19/2021 11:57 AM CDT 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 Gender Identity Male 09/19/2021 11:57 AM CDT Sexual Orientation Straight 09/19/2021 11 :57 AM CDT Last Filed Vital Signs Vital Sign Reading Time Taken Comments Blood Pressure 104/68 03/24/2025 10:19 AM CDT Pulse 54 03/24/2025 10:19 AM CDT Temperature 36.3 C (97.3 F) 03/01/2024 2:12 PM CDT Respiratory Rate 20 06/16/2020 9:53 AM CDT Oxygen Saturation 95% 03/24/2025 10:19 AM CDT Inhaled Oxygen Concentration - - Weight 61.3 kg (135 lb 3.2 oz) 03/24/2025 10:19 AM CDT Height 170.2 cm (5' 7) 03/24/2025 10:19 AM CDT Body Mass Index 21.18 03/24/2025 10:19 AM CDT Plan of Treatment Health Maintenance Due Date Last Done Comments COLOGUARD (AGES 45-75) - COLON CA SCREENING 1979 CT COLONOGRAPHY - COLON CA SCREENING 1979 FIT - COLON CA SCREENING 1979 FLEX SIG - COLON CA SCREENING 1979 HEPATITIS B VACCINE (1 of 3 - 19+ 3-dose series) 1998 DIABETES RETINOPATHY SCREENING 02/09/2020 DIABETES-FOOT EXAM WITH MONOFILAMENT 02/08/2021 02/09/2020 PNEUMOCOCCAL VACCINE (2 of 2 - PCV) 09/04/2021 09/04/2020 DIABETES-SERUM CREATININE 07/11/20232021, 03/16/2022, 03/16/2022, Additional history exists COVID-19 VACCINE ( season) 2024 10/03/2022, 01/08/2022, 11/15/2021, Additional history exists DIABETES - URINE PROTEIN SCREENING 11/24/2024 11/14/2021, 02/09/2020 MEDICARE AWV CALENDAR YEAR 2024 01/31/2022 DIABETES-HGB A1C 06/15/2025 12/16/2024, , 07/21/2023, Additional history exists ZOSTER VACCINE (1 of 2) 2029 DTAP/TDAP/TD VACCINES (2 - Td or Tdap) 09/04/2030 09/04/2020 COLON MONITORING 04/10/2033 04/10/2023 COLONOSCOPY - COLON CA SCREENING 04/10/2033 04/10/2023 Colorectal Cancer Screening 04/10/2033 HEPATITIS C SCREENING Completed 09/04/2020 HIV SCREENING Completed 09/04/2020 INFLUENZA VACCINE Completed 07/27/2024, , 01/16/2022, Additional history exists HIB VACCINE Aged Out No longer eligi ble based on patient's age to complete this topic HPV VACCINE Aged Out No longer eligi ble based on patient's age to complete this topic MENINGOCOCCAL (Group B) VACCINE SHARED DECISION-MAKING Aged Out No longer eligible based on patient's age to complete this topic MENINGOCOCCAL GROUPS A/C/Y/W VACCINE Aged Out No longer eligible based on patient's age to complete this topic Procedures Procedure Name Priority Date/Time Associated Diagnosis Comments PROLACTIN Routine 03/30/2025 7:35 AM CDT COMPREHENSIVE METABOLIC PANEL 07/11/2022 9:52 AM CDT HEMOGLOBIN A1C Routine 04/09/2022 9:55 AM CDT Urinary frequency Disorder of iron metabolism, unspecified MICROALB/CREAT RATIO URINE RANDOM PANEL 11/14/2021 12:15 PM ACTIVITIES LEADER HEPATITIS C AB SCREEN RFLX NAAT QUANT Routine 09/04/2020 11:07 AM CDT Healthcare maintenance HIV-1 HIV-2 ANTIBODY W REFLX Routine 09/04/2020 11:07 AM CDT Healthcare maintenance from Last 3 Months or Most Recently Relevant to Health Maintenance Results * (ABNORMAL) PROLACTIN (03/30/2025 7:35 AM CDT) Prolactin 70.1(H) 3.9 - 22.7 ng/mL [facility] INSURANCE BILL 03/30/2025 7:35 AM CDT 03/30/2025 Narrative [facility] INSURANCE BILL - 03/31/2025 7:37 AM CDT Performed at: 01 - [address] [id number] Supply Chain Manager: Jama Aguayo PhD, Phone: [phone] us Quoc Benjamin MD LAB - CHEMISTRY ORDERABLES Fi nal Result [facility] INSURANCE BILL [address] [place] [address] * (ABNORMAL) COMPREHENSIVE METABOLIC PANEL (07/11/2022 9:52 AM CDT) [facility] Glucose 99 65 - 99 mg/dL [facility] INSURANCE BILL BUN 4(L) 6 - 24 mg/dL [facility] INSURANCE BILL Creatinine 0.92 0.76 - 1.27 mg/dL [facility] INSURANCE BILL eGFR by CKD-EPI 107 >59 mL/min/1.7 3 [facility] INSURANCE BILL BUN/Creatinine Ratio 4(L) 9 - 20 [facility] INSURANCE BILL Sodium 140 134 - 144 mmol/L [facility] INSURANCE BILL Potassium 4.7 3.5 - 5.2 mmol/L [facility] INSURANCE BILL Chloride 102 96 - 106 mmol/L [facility] INSURANCE BILL CO2 24 20 - 29 mmol/L [facility] INSURANCE BILL Calcium 9.7 8.7 - 10.2 mg/dL [facility] INSURANCE BILL Protein Total 6.5 6.0 - 8.5 g/dL [facility] INSURANCE BILL Albumin 4.6 4.0 - 5.0 g/dL [facility] INSURANCE BILL Globulin Total 1.9 1.5 - 4.5 g/dL [facility] INSURANCE BILL Albumin/Globulin Ratio 2.4(H) 1.2 - 2.2 [facility] INSURANCE BILL Bilirubin Total 0.3 0.0 - 1.2 mg/dL [facility] INSURANCE BILL Alkaline Phosphatase 60 44 - 121 IU/L [facility] INSURANCE BILL AST 18 0 - 40 IU/L [facility] INSURANCE BILL ALT 24 0 - 44 IU/L [facility] INSURANCE BILL 07/11/2022 9:52 AM CDT 07/11/2022 Narrative Resulting Agency Comment Lab Testing performed at: [facility] [id number] Stephen Fuentes MD LAB - CHEMISTRY ORDERABLES Fi nal Result Performing Organization Address [facility]/ZIP Co de Phone Number [facility] INSURANCE BILL [address] [place] [address] * (ABNORMAL) HEMOGLOBIN A1C (04/09/2022 9:55 AM CDT) Hemoglobin A1c 5.8(H) 4.8 - 5.6 % [facility] INSURANCE BILL Comment: . Prediabetes: 5.7 - 6.4 Diabetes: >6.4 Glycemic control for adults with diabetes: <7.0 Blood BLOOD SPECIMEN / Unknown 04/09/2022 9:55 AM CDT 04/09/2022 Narrative Resulting Agency Comment Lab Testing performed at: [facility] [address] [facility] [id number] Zeny Thapa MD LAB - CHEMISTRY ORDERABLE S Final Result Performing Organization Address [facility] de Phone Number [facility] INSURANCE BILL [address] [place] [address] * MICROALB/CREAT RATIO URINE RANDOM PANEL (11/14/2021 12:15 PM ACTIVITIES LEADER) Creatinine Urine 101.9 Not Estab. mg/dL [facility] INSURANCE BILL Microalbumin Urine 13.7 Not Estab. ug/mL [facility] INSURANCE BILL Microalbumin/Crea tinine Ratio 13 0 - 29 mg/g creat [facility] INSURANCE BILL Comment: Normal: 0 - 29 Moderately increased: 30 - 300 Severely increased: >300 FASTING 11/14/2021 12:1 5 PM ACTIVITIES LEADER 11/14/2021 Narrative Resulting Agency Comment Lab Testing performed at: [facility] [address] [id number] Zeny Thapa MD LAB - URINE CHEMISTRY ORD ERABLES Final Result Performing Organization Address [facility] Co de Phone Number [facility] INSURANCE BILL [address] [place] [address] * HEPATITIS C AB SCREEN RFLX NAAT QUANT (09/04/2020 11:07 AM CDT) Hepatitis C Antibody Non-react yves Non-reac tive 09/04/2020 12:05 PM CDT [facility] Comment:Hepatitis C Antibody screen indicates no serologic evidence of past or current infection with Hepatitis C Virus. Patients with unexplained liver disease who are immunocompromised or suspected of having acute Hepatitis C infection may benefit from Nucleic Acid Test (QUIANA) for Hepatitis C Viral RNA to confirm Hepatitis C status. Blood BLOOD SPECIMEN / Unknown Lab Venipuncture / Unknown 09/04/2020 11:07 AM CDT 09/04/2020 11:21 AM CDT us Zeny Thapa MD LAB - CHEMISTRY ORDERABLE S Final Result [facility] [address] [address], [facility] [phone] * HIV-1 HIV-2 ANTIBODY W REFLX (09/04/2020 11:07 AM CDT) Pathologist [facility] HIV-1 Antibody Negative Negative 09/08/2020 12:06 AM CDT [facility] ([facility]) HIV-2 Antibody Negative Negative 09/08/2020 12:06 AM CDT [facility] ([facility]) Interpretation Negative 09/08/2020 12:06 AM CDT [facility] ([facility]) Comment:See RNA Reflex. Blood BLOOD SPECIMEN / Unknown Lab Venipuncture / Unknown 09/04/2020 11:07 AM CDT 09/04/2020 11:22 AM CDT Narrative [facility] ([facility]) - 09/08/2020 12:06 AM CDT [facility] [address] [place], [place] [id number] Supply Chain Manager: Jama Aguayo PhD, Phone: [phone] us Zeny Thapa MD LAB - SEROLOGY ORDERABLES Final Result [facility] ([facility]) [address] [place] [address], [facility] from Last 3 Months or Most Recently Relevant to Health Maintenance Insurance [place] D[place] Care Teams Drawer In [employer]oom Relationship Specialty Start Date End Date Flower Vaz PA [address] [facility] [address] [place] [address] PCP - General Physician [facility] Icer 12/29/24
== END 2025-04-25 08:43 | disposition home or self-care (01) ==
PROVIDERS: PCP Physician Assistant; Visit Provider Nurse Practitioner
DX: K76.89 Other specified diseases of liver (principal)
CPT/HCPCS: 76705

== ENCOUNTER 2025-09-06 11:12 | Outpatient (CLI) | payer OTHER, SELFPAY ==
--- NOTE | ~2025-09-06 | XR_ITS ---
EXAMINATION: XR abdomen/kub 1V, 09/06/2025 11:15 CDT HISTORY: constipation X 1 WK W/ABD DISCOMFORT SOME NAUSEA COMPARISON: No comparisons available. Technique: 3 view. Findings: Moderate fecal content, no dilated bowel loops No free air. No abnormal calcifications No acute osseous abnormality. Impression: 1. No acute abnormality. Reviewed, dictated and finalized at location P. Impression: 1. No acute abnormality.
== END 2025-09-06 11:13 | disposition home or self-care (01) ==
PROVIDERS: PCP Physician Assistant; Visit Provider Nurse Practitioner
DX: K58.1 Irritable bowel syndrome with constipation (principal)
CPT/HCPCS: 74018